=== PATIENT | male | born 1970 | race Caucasian/White ===

== ENCOUNTER → 2018-05-13 | Outpatient (CLI) | payer OTHER ==
--- NOTE | 2018-05-13 08:40 | REP ---
Complete abdominal ultrasonography: There is a negative Huertas's sign to transducer pressure. There is no cholelithiasis or gallbladder wall thickening. There is a tiny collection of free fluid adjacent to the gallbladder. There is no intrahepatic or extrahepatic biliary duct dilatation. The common biliary duct measures 4.4 mm in diameter. The hepatic parenchyma is homogeneous and otherwise unremarkable. The visualized areas of the pancreatic body and head are unremarkable. The spleen is homogeneous and normal size measuring 11.9 by 2.7 by 5.5 cm for a splenic index of 416. Normal is up to 480. The right kidney measures 12.3 x 3.2 x 4.7 cm. Left kidney measures 13.7 x 6.5 x 5.6 cm. The kidneys are normal size. There are no solid or cystic renal masses. There is no hydronephrosis. No renal calculi are identified. The abdominal aorta is normal size, no aneurysm is identified. Impression: Tiny volume of free fluid adjacent to the gallbladder. Otherwise, essentially negative complete abdominal ultrasound. Electronically Signed by Gerald Hernandez MD 05/13/2018 08:32 A
== END ==
LOC: M RAD 06:44
PROVIDERS: ATTEND Internal Medicine Gastroenterology
DX: R94.5 Abnormal results of liver function studies (principal)

== ENCOUNTER → 2018-09-09 | Outpatient (CLI) | payer OTHER ==
--- NOTE | 2018-09-09 08:58 | REP ---
Right upper quadrant sonography: History: Prior sonography is showing pericholecystic fluid. Abnormal LFTs. Rule out cirrhosis. Comparison study: Comparison sonography May 13, 2018. Findings: Scanning through the right upper quadrant of the abdomen demonstrates a normal sized, thin-walled gallbladder without evidence of stone or polyp. Common bile duct is normal measuring 0.3 cm in greatest diameter. No focal liver lesion is seen. Liver size is normal. No pancreatic abnormality is observed. No right renal abnormality is seen. There is no evidence of ascites. The right kidney measures 12.3 x 6.1 x 4.7 cm. Impression: Negative right upper quadrant sonography. Electronically Signed by Warren Gonzalez MD 09/09/2018 08:49 A
== END ==
LOC: M RAD 06:36
PROVIDERS: ATTEND Internal Medicine Gastroenterology
DX: R94.5 Abnormal results of liver function studies (principal)